=== PATIENT | female | born 1940 | race Caucasian/White ===

== ENCOUNTER 2021-01-08 12:03 | Day surgery (SDC) | payer MEDICARE, BC ==
[2021-01-08] VITALS (8 sets, daily range): BP systolic 134–180; BP diastolic 36–52
[~2021-01-08] VITALS: Ht 177.8 cm; Wt 88.4 kg
[2021-01-08] MEDS ORDERED: LACT1CAP73 PO (12:38)
[2021-01-08] MEDS ORDERED: LOSA50TA64 PO (12:38)
[2021-01-08] MEDS ORDERED: HYDR-3972 PO (12:38)
[2021-01-08] MEDS ORDERED: CHOL500049 PO (12:38)
[2021-01-08] MEDS ORDERED: TORS100T15 PO (12:38)
[2021-01-08] MEDS ORDERED: ALLO300T8 PO (12:38)
[2021-01-08] MEDS ORDERED: CARV-50 PO (12:38)
[2021-01-08] MEDS ORDERED: WARF2.5T82 PO (12:38)
[2021-01-08] MEDS ORDERED: HYDR-4070 PO (12:38)
[2021-01-08] MEDS ORDERED: SEVE800T7 PO (12:38)
[2021-01-08] MEDS ORDERED: VANCOMYCIN 1,500MG in NS 300 ML IVPB IV ONE (12:40)
[2021-01-08] MEDS ORDERED: ceFAZolin inj. 2,000 MG in normal saline soln 50 ML IV ONE (12:40)
[2021-01-08] MEDS ORDERED: normal saline 1000ml 1,000 ML IV SCH ×2 (12:45→15:45)
[2021-01-08 13:17] LABS: ALBUMIN 3.2 G/DL (3.4-5.0); ANION GAP 5 (8-16); BLOOD UREA NITROGEN 43 MG/DL (7-18); BUN/CREATININE RATIO 9.4 (6.6-38.0); CALCIUM 8.2 MG/DL (8.5-10.1); CHLORIDE 104 MMOL/L (99-107); CREATININE 4.59 MG/DL (0.40-0.90); GLUCOSE 93 MG/DL (70-104); POTASSIUM 4.8 MMOL/L (3.5-5.1); SODIUM 138 MMOL/L (135-145); TOTAL CARBON DIOXIDE 29.2 MMOL/L (24-32); eGFR 9 ML/MIN
[2021-01-08] MEDS ORDERED: vancomycin 1,000mg inj ONE ×2 (13:23→14:32)
[2021-01-08] MEDS ORDERED: fentaNYL/PF 50MCG/1 ML 2ML syringe ONE ×2 (13:23→14:27)
[2021-01-08] MEDS ORDERED: midazolam 1 mg/ML 2ml injection ONE ×4 (13:23→14:43)
[2021-01-08] MEDS ORDERED: LIDOCAINE 2% w/EPI 1:100:000 30mL injection MDV**cath lab 1 only ONE (13:25)
[2021-01-08 13:56] LABS: BASOPHILS % (AUTO) 0.8 % (0-1); EOSINOPHILS # (AUTO) 0.1 X10'3 (0-0.9); EOSINOPHILS % (AUTO) 1.9 % (0-6); HEMATOCRIT 37.2 % (35.0-45.0); HEMOGLOBIN 11.8 g/dl (12.0-16.0); LYMPHOCYTES % (AUTO) 20.1 % (21-51); MEAN CORPUSCULAR HEMOGLOBIN 29.9 PG (27.0-31.0); MEAN CORPUSCULAR HGB CONC 31.6 g/dL (33.0-36.5); MEAN CORPUSCULAR VOLUME 94.6 FL (78-98); MEAN PLATELET VOLUME 9.9 FL (7.4-10.4); MONOCYTES # (AUTO) 0.6 X10'3 (0-0.9); MONOCYTES % (AUTO) 12.7 % (2-12); NEUTROPHILS # (AUTO) 3.2 X10'3 (1.8-7.7); NEUTROPHILS % (AUTO) 64.5 % (42-75); PLATELET COUNT 177 X10'3 (140-440); RED BLOOD COUNT 3.93 X10'6 (4.20-5.60); RED CELL DISTRIBUTION WIDTH 16.7 % (11.5-14.5); WHITE BLOOD COUNT 4.9 X10'3 (4.5-11.0)
[2021-01-08] MEDS ORDERED: HYDROcodone/acetaminophen 5mg/325mg tablet PO PRN (15:45)
[2021-01-08] MEDS ORDERED: HYDROcodone/acetaminophen 10/325mg tab PO PRN (15:45)
== END 2021-01-08 17:45 | disposition home or self-care (01) ==
LOC: SSTAY O 12:03
PROVIDERS: ATTEND Internal Medicine Cardiovascular Disease
DX: Z45.010 Encounter for checking and testing of cardiac pacemaker pulse generator [battery] (principal); I42.0 Dilated cardiomyopathy; I12.9 Hypertensive chronic kidney disease with stage 1 through stage 4 chronic kidney disease, or unspecified chronic kidney disease; N18.9 Chronic kidney disease, unspecified; Z79.899 Other long term (current) drug therapy; Z98.890 Other specified postprocedural states; Z90.710 Acquired absence of both cervix and uterus
CPT/HCPCS: 33229; 36415; 80048; 83735; 85025; 85610; 93005; 99152; 99153; C1756; C1894; C2621; J2250; J3010; J3370; 92953; A4620; A6258